=== PATIENT | female | born 1960 | race Caucasian/White ===

== ENCOUNTER 2023-07-14 07:29 | Inpatient (IN) | payer OTHER ==
[2023-07-14] MEDS ORDERED: Dextrose 50% Abboject 50 ML SYRINGE SLOW IVP PRN (19:40)
[2023-07-14] MEDS ORDERED: Glucagon 1 MG/ML KIT IM PRN (19:40)
[2023-07-15] MEDS: Acetaminophen 325 MG TAB PO PRN (00:05)
[2023-07-15 06:04] LABS: #Eosinphils 0.4 thou/uL (0.0-0.7); #Lymphocytes 1.2 thou/uL (1.20-3.40); #Monocytes 0.5 thou/uL (0.11-0.59); #Neutrophils 3.9 thou/uL (1.40-6.50); %Basophils 0.8 % (0.0-1.0); %Eosinophils 7.3 % (0.0-10.0); %Lymphocytes 19.8 % (21.0-51.0); %Monocytes 8.8 % (0.0-10.0); %Neutrophils 63.2 % (42.0-75.0); Hematocrit 27.6 % (36.0-47.0); Mean Corpuscular HGB CONC 32.7 g/dL (32.0-36.0); Mean Corpuscular Hemoglobin 27.6 pg (27.0-31.0); Mean Corpuscular Volume 84.6 fl (78.0-98.0); Mean Platelet Volume 6.8 fL (7.4-10.4); Platelet Count 168 10x3/uL (130-400); RBC Distribution Width 14.2 % (11.5-14.5); Red Blood Cell (RBC) Count 3.26 mill/uL (4.20-5.40); White Blood Cell (WBC) Count 6.1 10x3/uL (4.8-10.8)
[2023-07-15 06:19] LABS: ALT (SGPT) 12 U/L (8-55); AST (SGOT) 12 U/L (5-34); Albumin 3.2 g/dL (3.4-4.8); Alkaline Phosphatase 104 U/L (40-110); Anion Gap 13 mmol/L (10-20); BUN (Urea Nitrogen) 18 mg/dL (9.8-20.1); Bilirubin, Total 0.9 mg/dL (0.2-1.2); Calc. Creatinine Clearance 102 mL/min (70-130); Calcium 8.8 mg/dL (7.8-10.44); Carbon Dioxide 27 mmol/L (23-31); Chloride 103 mmol/L (98-107); Estimated GFR 75; Globulin 2.5 g/dL (2.4-3.5); Glucose 137 mg/dL (80-115); Potassium 4.3 mmol/L (3.5-5.1); Protein, Total 5.7 g/dL (5.8-8.1); Sodium 139 mmol/L (136-145)
[2023-07-15] MEDS ORDERED: Naproxen 500 MG TAB PO SCH (09:00)
[2023-07-15] MEDS: Atenolol 25 MG TAB PO SCH (09:26)
[2023-07-15] MEDS: Gabapentin 300 MG CAP PO SCH (09:26)
[2023-07-15] MEDS: Cyclobenzaprine 10 MG TAB PO PRN (09:26)
[2023-07-15] MEDS: Enoxaparin 40 MG (0.4 mL) SYRINGE SC SCH (09:27)
[2023-07-15] MEDS: metFORMIN 500 MG TAB PO SCH (09:27)
[2023-07-15] MEDS: DULoxetine 30 MG CAP PO SCH (09:27)
[2023-07-15] MEDS: Famotidine 20 MG TAB PO SCH (09:27)
[2023-07-15] MEDS: Naproxen 500 MG TAB PO SCH (09:27)
[2023-07-15] MEDS: HumaLOG 300 UNITS/3 ML VIAL SC SCH (09:28)
[2023-07-15] MEDS: Lantus 1000 UNITS/10 ML VIAL SC SCH (09:28)
[2023-07-15] MEDS: clonazePAM 1 MG TAB PO PRN (14:51)
[2023-07-15] MEDS: HumaLOG 300 UNITS/3 ML VIAL SC PRN (14:52)
[2023-07-15] MEDS: Senokot S 8.6-50 MG TAB PO PRN (14:52)
[2023-07-15] MEDS: Atorvastatin Calcium 20 MG TAB PO SCH (20:31)
[2023-07-16] MEDS: (Semaglutide [Ozempic] 1 MG/0.75 ML Pen.Injctr) SQ SCH (09:00)
[2023-07-16] MEDS: Bisacodyl 5 MG TAB PO PRN (09:05)
[2023-07-16] MEDS: traMADol HCl 50 MG TAB PO PRN (11:06)
[2023-07-16] MEDS: HumaLOG 300 UNITS/3 ML VIAL SC SCH (17:50)
[2023-07-17] MEDS: Polyethylene Glycol 3350 17 GM Packet PO SCH (09:55)
[2023-07-17] MEDS: Nystatin Powder 15 GM BOT TOP PRN (13:38)
[2023-07-20] MEDS: traMADol HCl 50 MG TAB PO PRN (15:12)
[2023-07-21] MEDS ORDERED: Furosemide 20 MG TAB PO SCH (10:00)
[2023-07-21] MEDS: Furosemide 40 MG TAB PO SCH (11:06)
[2023-07-22 06:19] LABS: Hematocrit 33.7 % (36.0-47.0); Hemoglobin 10.8 g/dL (12.0-16.0); Platelet Count 251 10x3/uL (130-400)
[2023-07-22] MEDS: Lidocaine 4% Patch TD SCH (09:37)
[2023-07-22] MEDS ORDERED: Furosemide 20 MG TAB PO SCH (12:15)
[2023-07-22] MEDS: Furosemide 40 MG TAB PO SCH (12:18)
[2023-07-22] MEDS: HumaLOG 300 UNITS/3 ML VIAL SC PRN (22:19)
[2023-07-22] MEDS: Transdermal Patch Removal TOP SCH (22:20)
[2023-07-23] MEDS: Lidocaine 4% Patch TD SCH (11:27)
[2023-07-24] MEDS: Lidocaine 4% Patch TD SCH (08:02)
[2023-07-24] MEDS: Furosemide 20 MG TAB PO SCH (09:35)
[2023-07-25 06:10] LABS: Anion Gap 13 mmol/L (10-20); BUN (Urea Nitrogen) 15 mg/dL (9.8-20.1); Calc. Creatinine Clearance 104 mL/min (70-130); Carbon Dioxide 27 mmol/L (23-31); Chloride 101 mmol/L (98-107); Estimated GFR 76; Glucose 133 mg/dL (80-115); Potassium 3.9 mmol/L (3.5-5.1); Sodium 137 mmol/L (136-145)
[2023-07-27] MEDS: Acetaminophen 325 MG TAB PO PRN (12:26)
[2023-07-27] MEDS: metFORMIN 500 MG TAB PO SCH (17:25)
[2023-07-28 08:04] VITALS: BMI 38.2
[2023-07-28] MEDS: Ondansetron ODT 4 MG TAB SL PRN (08:25)
[2023-07-28] MEDS: Simethicone Chewable 80 MG TAB PO PRN (15:08)
[2023-07-29 06:08] LABS: Hematocrit 32.8 % (36.0-47.0); Hemoglobin 10.5 g/dL (12.0-16.0); Mean Corpuscular Volume 87.9 fl (78.0-98.0); Red Blood Cell (RBC) Count 3.73 mill/uL (4.20-5.40); White Blood Cell (WBC) Count 6.1 10x3/uL (4.8-10.8)
[2023-07-29 06:09] LABS: #Eosinphils 0.5 thou/uL (0.0-0.7); #Lymphocytes 1.4 thou/uL (1.20-3.40); #Monocytes 0.6 thou/uL (0.11-0.59); #Neutrophils 3.6 thou/uL (1.40-6.50); %Basophils 0.5 % (0.0-1.0); %Eosinophils 8.5 % (0.0-10.0); %Lymphocytes 22.9 % (21.0-51.0); %Monocytes 9.8 % (0.0-10.0); %Neutrophils 58.3 % (42.0-75.0); Manual Diff?? NO; Mean Corpuscular HGB CONC 31.8 g/dL (32.0-36.0); Mean Corpuscular Hemoglobin 28.8 pg (27.0-31.0); Mean Platelet Volume 7.6 fL (7.4-10.4); Platelet Count 160 10x3/uL (130-400); RBC Distribution Width 15.1 % (11.5-14.5)
[2023-07-29 06:25] LABS: Carbon Dioxide 26 mmol/L (23-31)
[2023-07-29 06:26] LABS: Anion Gap 10 mmol/L (10-20); BUN (Urea Nitrogen) 10 mg/dL (9.8-20.1); Calc. Creatinine Clearance 105 mL/min (70-130); Chloride 106 mmol/L (98-107); Estimated GFR 77; Glucose 140 mg/dL (80-115); Potassium 4.2 mmol/L (3.5-5.1); Sodium 138 mmol/L (136-145)
[2023-07-29 07:32] VITALS: TEMP 98.1
[2023-07-29 09:15] VITALS: BP 118/76
== END 2023-07-29 13:10 | disposition home or self-care (01) | DRG 561 ==
LOC: NAV ACUTE 20:11
PROVIDERS: ADMIT Family Medicine; ATTEND Family Medicine
PROC: 5A09357 Assistance with Respiratory Ventilation, Less than 24 Consecutive Hours, Continuous Positive Airway Pressure (ICD-10-PCS; principal; 2023-07-20)
DX: S22.41XD Multiple fractures of ribs, right side, subsequent encounter for fracture with routine healing (principal); I10 Essential (primary) hypertension; E11.9 Type 2 diabetes mellitus without complications; E78.5 Hyperlipidemia, unspecified; Z90.89 Acquired absence of other organs; Z90.49 Acquired absence of other specified parts of digestive tract; Z90.710 Acquired absence of both cervix and uterus; Z98.890 Other specified postprocedural states; Z82.49 Family history of ischemic heart disease and other diseases of the circulatory system; Z79.899 Other long term (current) drug therapy; Z79.4 Long term (current) use of insulin; R53.81 Other malaise; L30.4 Erythema intertrigo; D64.9 Anemia, unspecified; W18.30XD Fall on same level, unspecified, subsequent encounter
CPT/HCPCS: 36415; 36416; 71046; 80048; 80053; 82565; 85014; 85018; 85025; 85049; J1650; J1815; Q0162

== ENCOUNTER 2023-09-01 04:55 | Emergency (ER) | payer OTHER ==
[2023-09-01] MEDS ORDERED: Ipratropium/Albuterol 3 ML NEB ONE (05:31)
[2023-09-01 05:36] LABS: #Eosinphils 0.2 thou/uL (0.0-0.7); #Lymphocytes 1.3 thou/uL (1.20-3.40); #Monocytes 0.6 thou/uL (0.11-0.59); #Neutrophils 11.3 thou/uL (1.40-6.50); %Basophils 0.4 % (0.0-1.0); %Eosinophils 1.4 % (0.0-10.0); %Lymphocytes 9.6 % (21.0-51.0); %Monocytes 4.7 % (0.0-10.0); Hematocrit 42.7 % (36.0-47.0); Hemoglobin 13.2 g/dL (12.0-16.0); Mean Corpuscular HGB CONC 30.9 g/dL (32.0-36.0); Mean Corpuscular Hemoglobin 25.4 pg (27.0-31.0); Mean Corpuscular Volume 82.1 fl (78.0-98.0); Mean Platelet Volume 8.8 fL (7.4-10.4); Platelet Count 147 10x3/uL (130-400); White Blood Cell (WBC) Count 13.4 10x3/uL (4.8-10.8)
[2023-09-01 05:42] LABS: ALT (SGPT) 17 U/L (8-55); AST (SGOT) 16 U/L (5-34); Albumin 3.9 g/dL (3.4-4.8); Alkaline Phosphatase 132 U/L (40-110); Anion Gap 19 mmol/L (10-20); BUN (Urea Nitrogen) 10 mg/dL (9.8-20.1); Bilirubin, Total 0.9 mg/dL (0.2-1.2); Calc. Creatinine Clearance 0 mL/min (70-130); Calcium 9.3 mg/dL (7.8-10.44); Carbon Dioxide 21 mmol/L (23-31); Chloride 100 mmol/L (98-107); Estimated GFR 64; Globulin 2.9 g/dL (2.4-3.5); Glucose 231 mg/dL (80-115); Potassium 4.2 mmol/L (3.5-5.1); Protein, Total 6.8 g/dL (5.8-8.1); Sodium 136 mmol/L (136-145)
[2023-09-01 05:43] LABS: Base Excess-Venous -4.2 mmol/L (-2.0 to 3.0); Bicarbonate (HCO3v) 20.5 mmol/L (22.0-28.0); CO2 Tension (PvCO2) 36.2 mmHg (42.0-51.0); Calcium, Ionized 0.96 mmol/L (1.15-1.33); Chloride 102 mmol/L (98-107); Hemoglobin - Calc 17.2 g/dL (12.0-16.0); Sodium 135 mmol/L (138-145); T. Carbon Dioxide 21.6 mmol/L (22.0-28.0); vO2 Saturation-calc 87.3 % (60.0-85.0)
[2023-09-01] MEDS ORDERED: cefTRIAXone (ROCEPHIN) 2 GM VIAL ONE (05:58)
[2023-09-01 06:09] LABS: Influenza A by NAA Not Detected (NotDetected); Influenza B by NAA Not Detected (NotDetected); SARS-CoV-2 NAA Rapid Test Not Detected (NotDetected)
[2023-09-01] MEDS ORDERED: Azithromycin 500 MG VIAL ONE (06:30)
[2023-09-01] MEDS ORDERED: Sodium Chloride 0.9% 1,000 ML ONE (07:22)
[2023-09-01 08:51] LABS: Lactic Acid 4.4 mmol/L (0.5-2.2)
== END 2023-09-01 08:24 | disposition short-term general hospital (02) ==
LOC: NAV ERS 04:55
DX: A41.9 Sepsis, unspecified organism (principal); J18.9 Pneumonia, unspecified organism; R09.02 Hypoxemia; E78.00 Pure hypercholesterolemia, unspecified; E11.9 Type 2 diabetes mellitus without complications; I10 Essential (primary) hypertension; Z87.891 Personal history of nicotine dependence; Z79.84 Long term (current) use of oral hypoglycemic drugs; Z79.4 Long term (current) use of insulin; Z79.899 Other long term (current) drug therapy
CPT/HCPCS: 71045; 80053; 82330; 82803; 83605; 85025; 85379; 87040; 87070; 87077; 87205; 96361; 96365; 96366; J0456; J0696; J7050; J7620

== ENCOUNTER 2025-04-30 12:36 | Emergency (ER) | payer MEDICARE ==
[2025-04-30 14:06] LABS: ALT (SGPT) 12 U/L (Less than 34); AST (SGOT) 20 U/L (11-34); Albumin 4.0 g/dL (3.1-4.5); Alkaline Phosphatase 88 U/L (40-110); Anion Gap 17 mmol/L (10-20); BUN (Urea Nitrogen) 11 mg/dL (9.8-20.1); Bilirubin, Total 0.8 mg/dL (0.3-1.2); Calc. Creatinine Clearance 0 mL/min (70-130); Calcium 9.4 mg/dL (7.8-10.44); Carbon Dioxide 23 mmol/L (23-31); Chloride 102 mmol/L (98-107); Globulin 2.7 g/dL (2.4-3.5); Glucose 130 mg/dL (80-115); Potassium 3.9 mmol/L (3.5-5.1); Sodium 138 mmol/L (136-145)
[2025-04-30 14:18] LABS: Hematocrit 38.2 % (36.0-47.0); Hemoglobin 13.2 g/dL (12.0-16.0); Mean Corpuscular Hemoglobin 27.5 pg (27.0-31.0); Mean Corpuscular Volume 79.3 fl (78.0-98.0); Platelet Count 156 10x3/uL (130-400); Red Blood Cell (RBC) Count 4.81 mill/uL (4.20-5.40); White Blood Cell (WBC) Count 8.5 10x3/uL (4.8-10.8)
[2025-04-30 14:20] LABS: Platelet Adequacy Comment Appears Adequate
[2025-04-30] MEDS ORDERED: Acetaminophen 325 MG TAB ONE (14:54)
== END 2025-04-30 15:17 | disposition home or self-care (01) ==
LOC: NAV ERS 12:36
DX: R42 Dizziness and giddiness (principal); S01.511D Laceration without foreign body of lip, subsequent encounter; E78.00 Pure hypercholesterolemia, unspecified; E11.9 Type 2 diabetes mellitus without complications; I10 Essential (primary) hypertension; R29.700 NIHSS score 0; W18.30XD Fall on same level, unspecified, subsequent encounter; Z87.891 Personal history of nicotine dependence; Z79.899 Other long term (current) drug therapy; Z79.84 Long term (current) use of oral hypoglycemic drugs; Z79.4 Long term (current) use of insulin
CPT/HCPCS: 70450; 80053; 85025; 93005; J7030